=== PATIENT | male | born 1945 | race Caucasian/White ===

== ENCOUNTER 2017-03-26 14:12 | Inpatient (IN) | payer MEDICARE, OTHER ==
[~2017-03-26] VITALS: Ht 186.7 cm; Wt 84.9 kg
[2017-03-26] MEDS ORDERED: SODIUM CHLORIDE 0.9% 1,000 ML IV ONE (15:01)
[2017-03-26] MEDS ORDERED: ASPI-621 PO (15:17)
[2017-03-26] MEDS ORDERED: VITA400C9 PO (15:17)
[2017-03-26] MEDS ORDERED: SIMV10TA3 PO (15:17)
[2017-03-26] MEDS ORDERED: MILK500C PO (15:17)
[2017-03-26] MEDS ORDERED: OMEP-110 PO (15:17)
[2017-03-26] MEDS ORDERED: CETI10TA24 PO (15:17)
[2017-03-26] MEDS ORDERED: LISI5TAB7 PO (15:17)
[2017-03-26 15:19] LABS: HEMATOCRIT 42.6 % (39.2-51.8); HEMOGLOBIN 14.5 g/dL (13.7-18.0); WHITE BLOOD COUNT 22.2 x10^3/uL (3.4-10)
[2017-03-26] MEDS ORDERED: SODIUM CHLORIDE FLUSH 10ML SYR IVF ONE (15:30)
[2017-03-26] MEDS ORDERED: SODIUM CHLORIDE 0.9% 1,000ML IVBOLUS ONE (15:30)
[2017-03-26 15:34] LABS: ASPARTATE AMINO TRANSFERASE 48 U/L (15-37); BLOOD UREA NITROGEN 23 mg/dL (7-18)
[2017-03-26] MEDS ORDERED: SODIUM CHLORIDE 0.9%, 500ML IVBOLUS ONE (16:30)
[2017-03-26] MEDS ORDERED: CEFTRIAXONE PMX 1GM/50ML 50 ML IV ONE (20:00)
[2017-03-26] MEDS ORDERED: ACETAMINOPHEN 500 MG TABLET PO ONE (20:00)
[2017-03-26] MEDS ORDERED: CEFTRIAXONE PMX 1GM/50ML 50 ML ONE (20:47)
[2017-03-26] MEDS ORDERED: ACETAMINOPHEN 500 MG TABLET ONE (20:47)
[2017-03-26 22:30] VITALS: BP 112/67
[2017-03-27] MEDS ORDERED: SODIUM CHLORIDE 0.9% 1,000 ML IV SCH (00:36)
[2017-03-27] MEDS ORDERED: ENALAPRILAT 1.25 MG/ML, 2ML IVPush PRN (01:00)
[2017-03-27] MEDS ORDERED: DIPHENHYDRAMINE 25 MG CAPSULE PO PRN (01:00)
[2017-03-27] MEDS ORDERED: ONDANSETRON ODT 4 MG PO PRN (01:00)
[2017-03-27] MEDS ORDERED: DOCUSATE 100 MG CAPSULE PO PRN (01:00)
[2017-03-27 02:31] VITALS: BP 112/66
[2017-03-27] MEDS: ACETAMINOPHEN 325 MG TABLET PO PRN ×5 (04:37→23:08)
[2017-03-27] MEDS: OMEPRAZOLE 20 MG CAPSULE.DR PO SCH ×3 (05:00→19:29)
[2017-03-27 07:53] VITALS: BP 113/68
[2017-03-27] MEDS: CEFTRIAXONE PMX 1GM/50ML 50 ML IV SCH ×2 (09:44→19:28)
[2017-03-27] MEDS: SODIUM CHLORIDE 0.9% 1,000 ML IV SCH ×2 (09:44→22:22)
[2017-03-27] MEDS: ENOXAPARIN 40 MG/0.4 ML SQ SCH (09:52)
[2017-03-27 13:08] VITALS: BP 150/87
[2017-03-27 14:01] LABS: RAPID INFLUENZA A Negative (Negative); RAPID INFLUENZA B Negative (Negative)
[2017-03-27 16:28] LABS: HEMATOCRIT 38.5 % (39.2-51.8); HEMOGLOBIN 13.1 g/dL (13.7-18.0); WHITE BLOOD COUNT 20.8 x10^3/uL (3.4-10)
[2017-03-27 16:39] LABS: BLOOD UREA NITROGEN 15 mg/dL (7-18)
[2017-03-27 19:11] VITALS: BP 114/68
[2017-03-27] MEDS: ASPIRIN 81 MG TABLET EC PO SCH (19:27)
[2017-03-27] MEDS: LISINOPRIL 5 MG TABLET PO SCH (19:28)
[2017-03-27] MEDS: CETIRIZINE 10 MG TABLET PO SCH (19:28)
[2017-03-27] MEDS: VITAMIN E 400 UNITS CAPSULE PO SCH (19:28)
[2017-03-27] MEDS: SIMVASTATIN 10 MG TABLET PO SCH (19:28)
[2017-03-27] MEDS ORDERED: MILK THISTLE 500 MG PO SCH (21:00)
[2017-03-27] MEDS ORDERED: OMNIPAQUE 350 MG/ML, 100ML BOTTLE ONE (22:26)
[2017-03-28 01:45] VITALS: BP 112/69
[2017-03-28] MEDS: ACETAMINOPHEN 325 MG TABLET PO PRN ×2 (04:46→10:06)
[2017-03-28 05:19] LABS: HEMATOCRIT 37.5 % (39.2-51.8); HEMOGLOBIN 12.8 g/dL (13.7-18.0); WHITE BLOOD COUNT 24.6 x10^3/uL (3.4-10)
[2017-03-28 05:28] LABS: BLOOD UREA NITROGEN 14 mg/dL (7-18)
[2017-03-28 06:01] LABS: DIFF TOTAL CELLS COUNTED 100 CELL DIFF
[2017-03-28 06:03] LABS: POLYCHROMASIA 1+; VERIFY COUNTS? YES
[2017-03-28 07:45] VITALS: BP 101/55
[2017-03-28] MEDS: SODIUM CHLORIDE 0.9% 1,000 ML IV SCH ×2 (08:02→19:56)
[2017-03-28] MEDS: CEFTRIAXONE PMX 1GM/50ML 50 ML IV SCH (08:02)
[2017-03-28] MEDS: ENOXAPARIN 40 MG/0.4 ML SQ SCH (08:03)
[2017-03-28] MEDS: OMEPRAZOLE 20 MG CAPSULE.DR PO SCH ×2 (08:03→19:57)
[2017-03-28 13:27] VITALS: BP 137/79
[2017-03-28] MEDS ORDERED: HYDROcodone/APAP 5/325 TABLET PO PRN (15:00)
[2017-03-28 18:49] VITALS: BP 153/85
[2017-03-28] MEDS: ASPIRIN 81 MG TABLET EC PO SCH (19:57)
[2017-03-28] MEDS: CETIRIZINE 10 MG TABLET PO SCH (19:57)
[2017-03-28] MEDS: VITAMIN E 400 UNITS CAPSULE PO SCH (19:57)
[2017-03-28] MEDS: POLYETHYLENE GLYCOL 17 GM PACKET NG SCH (19:57)
[2017-03-28] MEDS: SIMVASTATIN 10 MG TABLET PO SCH (19:57)
[2017-03-28] MEDS: LISINOPRIL 5 MG TABLET PO SCH (19:58)
[2017-03-29 01:42] VITALS: BP 138/72
[2017-03-29] MEDS: SODIUM CHLORIDE 0.9% 1,000 ML IV SCH ×3 (05:11→23:36)
[2017-03-29 05:13] LABS: HEMATOCRIT 36.6 % (39.2-51.8); HEMOGLOBIN 12.4 g/dL (13.7-18.0); WHITE BLOOD COUNT 24.3 x10^3/uL (3.4-10)
[2017-03-29 05:22] LABS: ASPARTATE AMINO TRANSFERASE 23 U/L (15-37); BLOOD UREA NITROGEN 17 mg/dL (7-18)
[2017-03-29 06:10] LABS: DIFF TOTAL CELLS COUNTED 100 CELL DIFF
[2017-03-29 06:13] LABS: ANISOCYTOSIS 1+; POLYCHROMASIA 1+; VERIFY COUNTS? YES
[2017-03-29 07:15] VITALS: BP 114/65
[2017-03-29] MEDS: ENOXAPARIN 40 MG/0.4 ML SQ SCH (08:03)
[2017-03-29] MEDS: OMEPRAZOLE 20 MG CAPSULE.DR PO SCH ×2 (08:03→20:27)
[2017-03-29 13:03] VITALS: BP 128/70
[2017-03-29 17:13] LABS: HIV 1&2 ANTIBODY SCREEN Nonreactive (Nonreactive); HIV-1 p24 ANTIGEN Nonreactive (Nonreactive)
[2017-03-29 19:31] VITALS: BP 108/65
[2017-03-29] MEDS: LISINOPRIL 5 MG TABLET PO SCH (20:27)
[2017-03-29] MEDS: VITAMIN E 400 UNITS CAPSULE PO SCH (20:27)
[2017-03-29] MEDS: ASPIRIN 81 MG TABLET EC PO SCH (20:27)
[2017-03-29] MEDS: POLYETHYLENE GLYCOL 17 GM PACKET NG SCH (20:27)
[2017-03-29] MEDS: CETIRIZINE 10 MG TABLET PO SCH (20:28)
[2017-03-29] MEDS: SIMVASTATIN 10 MG TABLET PO SCH (20:28)
[2017-03-30 01:35] VITALS: BP 108/60
[2017-03-30] MEDS ORDERED: DOCUSATE 100 MG CAPSULE PO PRN (03:30)
[2017-03-30] MEDS ORDERED: DIPHENHYDRAMINE 25 MG CAPSULE PO PRN (03:30)
[2017-03-30] MEDS ORDERED: ENALAPRILAT 1.25 MG/ML, 2ML IVPush PRN (03:30)
[2017-03-30] MEDS ORDERED: ONDANSETRON ODT 4 MG PO PRN (03:30)
[2017-03-30 05:10] LABS: HEMATOCRIT 38.2 % (39.2-51.8); HEMOGLOBIN 13.1 g/dL (13.7-18.0)
[2017-03-30 05:25] LABS: BLOOD UREA NITROGEN 14 mg/dL (7-18)
[2017-03-30 05:53] LABS: DIFF TOTAL CELLS COUNTED 100 CELL DIFF
[2017-03-30 05:55] LABS: ANISOCYTOSIS 1+; POLYCHROMASIA 1+; VERIFY COUNTS? YES
[2017-03-30 07:52] VITALS: BP 102/62
[2017-03-30] MEDS: ENOXAPARIN 40 MG/0.4 ML SQ SCH (09:03)
[2017-03-30] MEDS: OMEPRAZOLE 20 MG CAPSULE.DR PO SCH ×2 (09:03→20:58)
[2017-03-30] MEDS: SODIUM CHLORIDE 0.9% 1,000 ML IV SCH ×2 (09:15→19:48)
[2017-03-30] MEDS: ACETAMINOPHEN 325 MG TABLET PO PRN ×3 (12:42→20:58)
[2017-03-30 13:28] VITALS: BP 98/61
[2017-03-30 20:10] VITALS: BP 100/63
[2017-03-30] MEDS: POLYETHYLENE GLYCOL 17 GM PACKET NG SCH (20:57)
[2017-03-30] MEDS: ASPIRIN 81 MG TABLET EC PO SCH (20:57)
[2017-03-30] MEDS: LISINOPRIL 5 MG TABLET PO SCH (20:58)
[2017-03-30] MEDS: CETIRIZINE 10 MG TABLET PO SCH (20:58)
[2017-03-30] MEDS: VITAMIN E 400 UNITS CAPSULE PO SCH (20:58)
[2017-03-31] MEDS: ACETAMINOPHEN 325 MG TABLET PO PRN ×5 (01:01→19:00)
[2017-03-31 01:40] VITALS: BP 120/63
[2017-03-31 05:22] LABS: HEMATOCRIT 35.7 % (39.2-51.8); WHITE BLOOD COUNT 33.3 x10^3/uL (3.4-10)
[2017-03-31] MEDS: SODIUM CHLORIDE 0.9% 1,000 ML IV SCH ×2 (05:27→16:25)
[2017-03-31 05:30] LABS: BLOOD UREA NITROGEN 14 mg/dL (7-18)
[2017-03-31 05:49] LABS: DIFF TOTAL CELLS COUNTED 100 CELL DIFF
[2017-03-31 05:50] LABS: VERIFY COUNTS? YES
[2017-03-31 05:53] LABS: ANISOCYTOSIS 1+; POLYCHROMASIA 1+
[2017-03-31 07:45] VITALS: BP 98/58
[2017-03-31] MEDS: ENOXAPARIN 40 MG/0.4 ML SQ SCH (08:52)
[2017-03-31] MEDS: OMEPRAZOLE 20 MG CAPSULE.DR PO SCH ×2 (08:52→19:59)
[2017-03-31] MEDS: CEFTRIAXONE PMX 2GM/50ML 50 ML IV SCH (12:28)
[2017-03-31] MEDS: DOXYCYCLINE 100MG TABLET PO SCH ×2 (12:58→20:00)
[2017-03-31] MEDS ORDERED: POTASSIUM CHLORIDE 20 MEQ TAB.ER.PRT PO ONE (14:30)
[2017-03-31 15:10] VITALS: BP 121/71
[2017-03-31 19:48] VITALS: BP 110/65
[2017-03-31] MEDS: ASPIRIN 81 MG TABLET EC PO SCH (19:59)
[2017-03-31] MEDS: POLYETHYLENE GLYCOL 17 GM PACKET NG SCH (19:59)
[2017-03-31] MEDS: LISINOPRIL 5 MG TABLET PO SCH (19:59)
[2017-03-31] MEDS: VITAMIN E 400 UNITS CAPSULE PO SCH (20:00)
[2017-03-31] MEDS: CETIRIZINE 10 MG TABLET PO SCH (20:00)
[2017-04-01] MEDS: ACETAMINOPHEN 325 MG TABLET PO PRN ×5 (00:58→23:19)
[2017-04-01] MEDS: SODIUM CHLORIDE 0.9% 1,000 ML IV SCH ×2 (00:59→11:46)
[2017-04-01 03:59] VITALS: BP 96/58
[2017-04-01 05:35] LABS: HEMATOCRIT 36.8 % (39.2-51.8); HEMOGLOBIN 12.4 g/dL (13.7-18.0); WHITE BLOOD COUNT 31.9 x10^3/uL (3.4-10)
[2017-04-01 06:05] LABS: BLOOD UREA NITROGEN 12 mg/dL (7-18)
[2017-04-01 06:15] LABS: DIFF TOTAL CELLS COUNTED 100 CELL DIFF
[2017-04-01 06:19] LABS: ANISOCYTOSIS 1+; POLYCHROMASIA 1+; VERIFY COUNTS? YES
[2017-04-01] MEDS: ENOXAPARIN 40 MG/0.4 ML SQ SCH (07:52)
[2017-04-01] MEDS: DOXYCYCLINE 100MG TABLET PO SCH ×2 (07:52→21:27)
[2017-04-01] MEDS: OMEPRAZOLE 20 MG CAPSULE.DR PO SCH ×2 (07:52→21:30)
[2017-04-01 07:55] VITALS: BP 102/65
[2017-04-01] MEDS: OXYcodone IR 5MG TABLET PO PRN ×4 (10:56→23:25)
[2017-04-01] MEDS: CEFTRIAXONE PMX 2GM/50ML 50 ML IV SCH (13:39)
[2017-04-01 14:10] VITALS: BP 106/59
[2017-04-01 20:17] VITALS: BP 112/71
[2017-04-01] MEDS: POLYETHYLENE GLYCOL 17 GM PACKET NG SCH (21:00)
[2017-04-01] MEDS: CETIRIZINE 10 MG TABLET PO SCH (21:27)
[2017-04-01] MEDS: VITAMIN E 400 UNITS CAPSULE PO SCH (21:27)
[2017-04-01] MEDS: ASPIRIN 81 MG TABLET EC PO SCH (21:30)
[2017-04-01] MEDS: LISINOPRIL 5 MG TABLET PO SCH (21:30)
[2017-04-02 03:50] VITALS: BP 109/70
[2017-04-02] MEDS: SODIUM CHLORIDE 0.9% 1,000 ML IV SCH (05:15)
[2017-04-02 05:48] LABS: HEMOGLOBIN 12.4 g/dL (13.7-18.0); WHITE BLOOD COUNT 30.1 x10^3/uL (3.4-10)
[2017-04-02] MEDS: OXYcodone IR 5MG TABLET PO PRN ×3 (05:49→18:29)
[2017-04-02] MEDS: ACETAMINOPHEN 325 MG TABLET PO PRN ×3 (05:49→18:29)
[2017-04-02 06:07] LABS: DIFF TOTAL CELLS COUNTED 100 CELL DIFF
[2017-04-02 06:09] LABS: ANISOCYTOSIS 1+; POLYCHROMASIA 1+; VERIFY COUNTS? YES
[2017-04-02 07:39] VITALS: BP 109/68
[2017-04-02] MEDS: OMEPRAZOLE 20 MG CAPSULE.DR PO SCH ×2 (09:00→21:00)
[2017-04-02] MEDS: DOXYCYCLINE 100MG TABLET PO SCH ×2 (09:04→21:07)
[2017-04-02] MEDS: ENOXAPARIN 40 MG/0.4 ML SQ SCH (09:05)
[2017-04-02] MEDS: CEFTRIAXONE PMX 2GM/50ML 50 ML IV SCH (13:15)
[2017-04-02 14:00] VITALS: BP 109/54
[2017-04-02] MEDS ORDERED: GADOBUTROL 10 MMOL/10 ML PFS ONE (14:46)
[2017-04-02 16:07] LABS: BARTONELLA HENSELAE IGG Negative titer (Neg:<1:320); BARTONELLA HENSELAE IGM Negative titer (Neg:<1:100); BARTONELLA QUINTANA IGM Negative titer (Neg:<1:100)
[2017-04-02 19:44] VITALS: BP 123/68
[2017-04-02] MEDS: POLYETHYLENE GLYCOL 17 GM PACKET NG SCH (21:00)
[2017-04-02] MEDS: CETIRIZINE 10 MG TABLET PO SCH (21:06)
[2017-04-02] MEDS: LISINOPRIL 5 MG TABLET PO SCH (21:07)
[2017-04-02] MEDS: VITAMIN E 400 UNITS CAPSULE PO SCH (21:07)
[2017-04-02] MEDS: ASPIRIN 81 MG TABLET EC PO SCH (21:07)
[2017-04-03] MEDS: OXYcodone IR 5MG TABLET PO PRN ×4 (00:43→18:39)
[2017-04-03] MEDS: ACETAMINOPHEN 325 MG TABLET PO PRN ×4 (00:43→18:39)
[2017-04-03] MEDS ORDERED: SODIUM CHLORIDE 0.9% 1,000 ML IV SCH (00:51)
[2017-04-03 01:21] VITALS: BP 108/64
[2017-04-03 06:08] LABS: BLOOD UREA NITROGEN 13 mg/dL (7-18)
[2017-04-03 06:13] LABS: HEMATOCRIT 34.2 % (39.2-51.8); HEMOGLOBIN 11.7 g/dL (13.7-18.0); WHITE BLOOD COUNT 22.7 x10^3/uL (3.4-10)
[2017-04-03 06:18] LABS: ASPARTATE AMINO TRANSFERASE 83 U/L (15-37)
[2017-04-03 06:31] LABS: DIFF TOTAL CELLS COUNTED 100 CELL DIFF
[2017-04-03 06:32] LABS: VERIFY COUNTS? YES
[2017-04-03 06:33] LABS: ANISOCYTOSIS 1+; POLYCHROMASIA 1+
[2017-04-03 06:38] VITALS: BP 124/69
[2017-04-03 07:49] VITALS: BP 109/66
[2017-04-03] MEDS: ENOXAPARIN 40 MG/0.4 ML SQ SCH (08:17)
[2017-04-03] MEDS: OMEPRAZOLE 20 MG CAPSULE.DR PO SCH ×2 (08:18→21:00)
[2017-04-03] MEDS: DOXYCYCLINE 100MG TABLET PO SCH ×2 (08:18→21:00)
[2017-04-03] MEDS: CEFTRIAXONE PMX 2GM/50ML 50 ML IV SCH (12:42)
[2017-04-03 13:06] LABS: BRUCELLA IGG Negative (Negative); BRUCELLA IGM Negative (Negative)
[2017-04-03 13:33] VITALS: BP 112/72
[2017-04-03 14:45] LABS: ANA SCREEN NEGATIVE (Negative)
[2017-04-03 19:28] VITALS: BP 116/70
[2017-04-03] MEDS: POLYETHYLENE GLYCOL 17 GM PACKET NG SCH (21:00)
[2017-04-03] MEDS: VITAMIN E 400 UNITS CAPSULE PO SCH (21:00)
[2017-04-03] MEDS: ASPIRIN 81 MG TABLET EC PO SCH (21:00)
[2017-04-03] MEDS: LISINOPRIL 5 MG TABLET PO SCH (21:00)
[2017-04-03] MEDS: CETIRIZINE 10 MG TABLET PO SCH (21:00)
[2017-04-04] MEDS: OXYcodone IR 5MG TABLET PO PRN ×4 (01:02→20:40)
[2017-04-04] MEDS: ACETAMINOPHEN 325 MG TABLET PO PRN ×4 (01:05→20:40)
[2017-04-04 02:33] VITALS: BP 117/69
[2017-04-04 05:40] LABS: HEMATOCRIT 33.7 % (39.2-51.8); HEMOGLOBIN 11.3 g/dL (13.7-18.0); WHITE BLOOD COUNT 20.2 x10^3/uL (3.4-10)
[2017-04-04 05:48] LABS: BLOOD UREA NITROGEN 13 mg/dL (7-18)
[2017-04-04 05:59] LABS: ASPARTATE AMINO TRANSFERASE 86 U/L (15-37); LACTATE DEHYDROGENASE 145 U/L (87-241)
[2017-04-04 06:04] LABS: DIFF TOTAL CELLS COUNTED 100 CELL DIFF
[2017-04-04 06:06] LABS: ANISOCYTOSIS 1+; POLYCHROMASIA 1+; VERIFY COUNTS? YES
[2017-04-04 07:37] VITALS: BP 113/72
[2017-04-04] MEDS: DOXYCYCLINE 100MG TABLET PO SCH ×2 (08:06→20:40)
[2017-04-04] MEDS: OMEPRAZOLE 20 MG CAPSULE.DR PO SCH ×2 (08:06→20:39)
[2017-04-04] MEDS: ENOXAPARIN 40 MG/0.4 ML SQ SCH (08:07)
[2017-04-04] MEDS ORDERED: morphine SULFATE 10 MG/ML, 1ML IVPush ONE (13:00)
[2017-04-04 14:23] VITALS: BP 110/68
[2017-04-04] MEDS ORDERED: GADOBUTROL 10 MMOL/10 ML PFS ONE (15:23)
[2017-04-04] MEDS: CEFTRIAXONE PMX 2GM/50ML 50 ML IV SCH (16:32)
[2017-04-04] MEDS: POLYETHYLENE GLYCOL 17 GM PACKET PO SCH (16:32)
[2017-04-04 17:06] LABS: RESULT Not Detected (.); SPECIMEN SOURCE Whole Blood (.)
[2017-04-04] MEDS: ASPIRIN 81 MG TABLET EC PO SCH (20:39)
[2017-04-04] MEDS: CETIRIZINE 10 MG TABLET PO SCH (20:40)
[2017-04-04] MEDS: LISINOPRIL 5 MG TABLET PO SCH (20:40)
[2017-04-04] MEDS: VITAMIN E 400 UNITS CAPSULE PO SCH (20:40)
[2017-04-04 20:48] VITALS: BP 134/71
[2017-04-05 03:49] VITALS: BP 112/63
[2017-04-05] MEDS: ACETAMINOPHEN 325 MG TABLET PO PRN ×3 (03:53→16:23)
[2017-04-05] MEDS: OXYcodone IR 5MG TABLET PO PRN ×3 (03:53→10:05)
[2017-04-05 07:35] VITALS: BP 112/69
[2017-04-05 08:03] LABS: HEMATOCRIT 34.8 % (39.2-51.8); HEMOGLOBIN 11.8 g/dL (13.7-18.0); WHITE BLOOD COUNT 19.6 x10^3/uL (3.4-10)
[2017-04-05 08:08] LABS: BLOOD UREA NITROGEN 11 mg/dL (7-18)
[2017-04-05 08:12] LABS: ASPARTATE AMINO TRANSFERASE 73 U/L (15-37)
[2017-04-05 09:03] LABS: DIFF TOTAL CELLS COUNTED 100 CELL DIFF
[2017-04-05 09:04] LABS: VERIFY COUNTS? YES
[2017-04-05] MEDS: POLYETHYLENE GLYCOL 17 GM PACKET PO SCH (10:06)
[2017-04-05] MEDS: DOXYCYCLINE 100MG TABLET PO SCH ×2 (10:06→20:40)
[2017-04-05] MEDS: OMEPRAZOLE 20 MG CAPSULE.DR PO SCH ×2 (10:07→20:41)
[2017-04-05] MEDS: ENOXAPARIN 40 MG/0.4 ML SQ SCH (10:07)
[2017-04-05 13:28] VITALS: BP 110/65
[2017-04-05] MEDS ORDERED: OXYcodone IR 5MG TABLET PO SCH (16:00)
[2017-04-05] MEDS: OXYcodone IR 5MG TABLET PO SCH ×2 (16:23→20:40)
[2017-04-05] MEDS: CEFTRIAXONE PMX 2GM/50ML 50 ML IV SCH (16:24)
[2017-04-05] MEDS: GABAPENTIN 300 MG CAPSULE PO SCH ×2 (16:25→20:41)
[2017-04-05 20:02] VITALS: BP 118/67
[2017-04-05] MEDS: VITAMIN E 400 UNITS CAPSULE PO SCH (20:40)
[2017-04-05] MEDS: LISINOPRIL 5 MG TABLET PO SCH (20:41)
[2017-04-05] MEDS: ASPIRIN 81 MG TABLET EC PO SCH (20:41)
[2017-04-05] MEDS: CETIRIZINE 10 MG TABLET PO SCH (20:42)
[2017-04-06 01:57] VITALS: BP 101/66
[2017-04-06] MEDS: ACETAMINOPHEN 325 MG TABLET PO PRN ×4 (02:55→21:23)
[2017-04-06 04:56] LABS: HEMATOCRIT 33.6 % (39.2-51.8); HEMOGLOBIN 11.5 g/dL (13.7-18.0); WHITE BLOOD COUNT 18.5 x10^3/uL (3.4-10)
[2017-04-06 05:18] LABS: ASPARTATE AMINO TRANSFERASE 77 U/L (15-37); BLOOD UREA NITROGEN 14 mg/dL (7-18)
[2017-04-06] MEDS: OXYcodone IR 5MG TABLET PO SCH ×4 (05:53→21:21)
[2017-04-06 06:06] LABS: DIFF TOTAL CELLS COUNTED 100 CELL DIFF
[2017-04-06 06:08] LABS: POLYCHROMASIA 1+; VERIFY COUNTS? YES
[2017-04-06 07:23] VITALS: BP 102/57
[2017-04-06] MEDS: GABAPENTIN 300 MG CAPSULE PO SCH ×3 (08:53→20:54)
[2017-04-06] MEDS: OMEPRAZOLE 20 MG CAPSULE.DR PO SCH ×2 (08:53→20:54)
[2017-04-06] MEDS: POLYETHYLENE GLYCOL 17 GM PACKET PO SCH (08:53)
[2017-04-06] MEDS: ENOXAPARIN 40 MG/0.4 ML SQ SCH (08:54)
[2017-04-06] MEDS: DOXYCYCLINE 100MG TABLET PO SCH ×2 (08:54→20:55)
[2017-04-06 13:22] VITALS: BP 90/55
[2017-04-06] MEDS: CEFTRIAXONE PMX 2GM/50ML 50 ML IV SCH (14:49)
[2017-04-06] MEDS ORDERED: ENALAPRILAT 1.25 MG/ML, 2ML IVPush PRN (19:30)
[2017-04-06] MEDS ORDERED: DIPHENHYDRAMINE 25 MG CAPSULE PO PRN (19:30)
[2017-04-06] MEDS ORDERED: DOCUSATE 100 MG CAPSULE PO PRN (19:30)
[2017-04-06 20:17] VITALS: BP 96/62
[2017-04-06] MEDS: ASPIRIN 81 MG TABLET EC PO SCH (20:54)
[2017-04-06] MEDS: LISINOPRIL 5 MG TABLET PO SCH (20:55)
[2017-04-06] MEDS: CETIRIZINE 10 MG TABLET PO SCH (20:55)
[2017-04-06] MEDS: VITAMIN E 400 UNITS CAPSULE PO SCH (20:55)
[2017-04-07 01:37] VITALS: BP 114/67
[2017-04-07] MEDS: OXYcodone IR 5MG TABLET PO SCH ×4 (04:53→20:55)
[2017-04-07] MEDS: ACETAMINOPHEN 325 MG TABLET PO PRN ×2 (04:53→20:55)
[2017-04-07 05:51] LABS: HEMATOCRIT 33.8 % (39.2-51.8); HEMOGLOBIN 11.4 g/dL (13.7-18.0); WHITE BLOOD COUNT 16.9 x10^3/uL (3.4-10)
[2017-04-07 06:03] LABS: BLOOD UREA NITROGEN 13 mg/dL (7-18)
[2017-04-07 06:13] LABS: ASPARTATE AMINO TRANSFERASE 79 U/L (15-37)
[2017-04-07 08:18] VITALS: BP 114/64
[2017-04-07] MEDS: POLYETHYLENE GLYCOL 17 GM PACKET PO SCH (09:00)
[2017-04-07] MEDS: ENOXAPARIN 40 MG/0.4 ML SQ SCH (09:37)
[2017-04-07] MEDS ORDERED: FLUMAZENIL 0.1 MG/1 ML, 5ML ONE (10:01)
[2017-04-07] MEDS ORDERED: NALOXONE 1 MG/ML, 2ML ONE (10:01)
[2017-04-07] MEDS ORDERED: FENTANYL PF 100 MCG/2ML ONE (10:01)
[2017-04-07] MEDS ORDERED: MIDAZOLAM 1 MG/ML, 5ML ONE (10:01)
[2017-04-07] MEDS ORDERED: LIDOCAINE 1%, 20ML ONE (10:16)
[2017-04-07] MEDS: DOXYCYCLINE 100MG TABLET PO SCH ×2 (11:45→20:53)
[2017-04-07] MEDS: GABAPENTIN 300 MG CAPSULE PO SCH ×3 (11:45→20:53)
[2017-04-07] MEDS: OMEPRAZOLE 20 MG CAPSULE.DR PO SCH ×2 (11:45→20:54)
[2017-04-07 13:06] LABS: UR ALBUMIN 18.4 % (.); UR ALPHA-2-GLOBULIN 21.4 % (.); UR BETA GLOBULIN 30.9 % (.); UR GAMMA GLOBULIN 22.4 % (.); UR M-SPIKE % Not Observed % (Not Observed)
[2017-04-07 14:20] VITALS: BP 110/67
[2017-04-07] MEDS: CEFTRIAXONE PMX 2GM/50ML 50 ML IV SCH (15:59)
[2017-04-07 20:07] VITALS: BP 129/72
[2017-04-07] MEDS: ASPIRIN 81 MG TABLET EC PO SCH (20:53)
[2017-04-07] MEDS: CETIRIZINE 10 MG TABLET PO SCH (20:54)
[2017-04-07] MEDS: VITAMIN E 400 UNITS CAPSULE PO SCH (20:54)
[2017-04-07] MEDS: LISINOPRIL 5 MG TABLET PO SCH (20:54)
[2017-04-08 02:20] VITALS: BP 96/60
[2017-04-08 06:10] LABS: HEMATOCRIT 33.4 % (39.2-51.8); HEMOGLOBIN 11.3 g/dL (13.7-18.0); WHITE BLOOD COUNT 16.8 x10^3/uL (3.4-10)
[2017-04-08] MEDS: OXYcodone IR 5MG TABLET PO SCH ×4 (06:12→21:00)
[2017-04-08] MEDS: ACETAMINOPHEN 325 MG TABLET PO PRN ×4 (06:12→21:01)
[2017-04-08 06:18] LABS: BLOOD UREA NITROGEN 13 mg/dL (7-18)
[2017-04-08 06:21] LABS: ASPARTATE AMINO TRANSFERASE 64 U/L (15-37)
[2017-04-08 07:43] VITALS: BP 98/62
[2017-04-08] MEDS: OMEPRAZOLE 20 MG CAPSULE.DR PO SCH ×2 (08:46→21:01)
[2017-04-08] MEDS: ENOXAPARIN 40 MG/0.4 ML SQ SCH (08:47)
[2017-04-08] MEDS: POLYETHYLENE GLYCOL 17 GM PACKET PO SCH (08:47)
[2017-04-08] MEDS: GABAPENTIN 300 MG CAPSULE PO SCH ×3 (08:47→21:00)
[2017-04-08] MEDS: DOXYCYCLINE 100MG TABLET PO SCH ×2 (08:47→21:01)
[2017-04-08 09:07] LABS: A/G RATIO 0.7 (0.7-1.7); ALBUMIN 1.8 g/dL (2.9-4.4); ALPHA-1-GLOBULIN 0.4 g/dL (0.0-0.4); BETA GLOBULIN 0.6 g/dL (0.7-1.3); GAMMA GLOBULIN 0.6 g/dL (0.4-1.8); PROTEIN TOTAL 4.4 g/dL (6.0-8.5)
[2017-04-08 14:00] VITALS: BP 104/62
[2017-04-08] MEDS: CEFTRIAXONE PMX 2GM/50ML 50 ML IV SCH (15:08)
[2017-04-08 17:07] LABS: COCCIDIOIDES AB (CF) <1:2 (<1:2); COCCIDIOIDES IGG 0.5 IV (<=0.9); COCCIDIOIDES IGM 0.2 IV (<=0.9)
[2017-04-08 20:00] VITALS: BP 115/68
[2017-04-08] MEDS: VITAMIN E 400 UNITS CAPSULE PO SCH (21:00)
[2017-04-08] MEDS: CETIRIZINE 10 MG TABLET PO SCH (21:00)
[2017-04-08] MEDS: ASPIRIN 81 MG TABLET EC PO SCH (21:01)
[2017-04-08] MEDS: LISINOPRIL 5 MG TABLET PO SCH (21:01)
[2017-04-09 01:13] VITALS: BP 101/55
[2017-04-09] MEDS: OXYcodone IR 5MG TABLET PO SCH ×4 (05:16→20:48)
[2017-04-09] MEDS: ACETAMINOPHEN 325 MG TABLET PO PRN ×4 (05:16→20:48)
[2017-04-09 06:18] LABS: HEMATOCRIT 31.4 % (39.2-51.8); HEMOGLOBIN 10.7 g/dL (13.7-18.0)
[2017-04-09 07:44] VITALS: BP 96/59
[2017-04-09] MEDS: POLYETHYLENE GLYCOL 17 GM PACKET PO SCH (09:47)
[2017-04-09] MEDS: GABAPENTIN 300 MG CAPSULE PO SCH ×3 (09:47→20:48)
[2017-04-09] MEDS: OMEPRAZOLE 20 MG CAPSULE.DR PO SCH ×2 (09:47→20:48)
[2017-04-09] MEDS: DOXYCYCLINE 100MG TABLET PO SCH ×2 (09:47→20:48)
[2017-04-09] MEDS: ENOXAPARIN 40 MG/0.4 ML SQ SCH (09:48)
[2017-04-09 14:23] VITALS: BP 103/62
[2017-04-09] MEDS: CEFTRIAXONE PMX 2GM/50ML 50 ML IV SCH (15:23)
[2017-04-09 20:15] VITALS: BP 103/57
[2017-04-09] MEDS: VITAMIN E 400 UNITS CAPSULE PO SCH (20:48)
[2017-04-09] MEDS: LISINOPRIL 5 MG TABLET PO SCH (20:48)
[2017-04-09] MEDS: CETIRIZINE 10 MG TABLET PO SCH (20:48)
[2017-04-09] MEDS: ASPIRIN 81 MG TABLET EC PO SCH (20:48)
[2017-04-10] MEDS: ACETAMINOPHEN 325 MG TABLET PO PRN ×5 (01:05→20:59)
[2017-04-10 02:58] VITALS: BP 105/62
[2017-04-10] MEDS: OXYcodone IR 5MG TABLET PO SCH ×4 (06:02→20:59)
[2017-04-10 08:31] VITALS: BP 106/59
[2017-04-10] MEDS: DOXYCYCLINE 100MG TABLET PO SCH ×2 (08:44→20:59)
[2017-04-10] MEDS: OMEPRAZOLE 20 MG CAPSULE.DR PO SCH ×2 (08:45→20:59)
[2017-04-10] MEDS: POLYETHYLENE GLYCOL 17 GM PACKET PO SCH (08:45)
[2017-04-10] MEDS: ENOXAPARIN 40 MG/0.4 ML SQ SCH (08:45)
[2017-04-10] MEDS: GABAPENTIN 300 MG CAPSULE PO SCH ×3 (08:45→20:59)
[2017-04-10 13:27] VITALS: BP 103/63
[2017-04-10] MEDS: CEFTRIAXONE PMX 2GM/50ML 50 ML IV SCH (15:51)
[2017-04-10 20:37] VITALS: BP 112/63
[2017-04-10] MEDS: ASPIRIN 81 MG TABLET EC PO SCH (20:59)
[2017-04-10] MEDS: LISINOPRIL 5 MG TABLET PO SCH (20:59)
[2017-04-10] MEDS: VITAMIN E 400 UNITS CAPSULE PO SCH (20:59)
[2017-04-10] MEDS: CETIRIZINE 10 MG TABLET PO SCH (21:00)
[2017-04-10 23:06] LABS: ABSOLUTE CD 4 HELPER 1175 /uL (359-1519); HEMATOCRIT 32.7 % (37.5-51.0); HEMOGLOBIN 10.7 g/dL (12.6-17.7); IMMATURE GRANULOCYTES 2 % (.); MCHC 32.7 g/dL (31.5-35.7); MCV 95 fL (79-97); MONOCYTES 10 % (.); NEUTROPHILS 74 % (.); NEUTROPHILS (ABSOLUTE) 12.5 x10E3/uL (1.4-7.0); PLATELETS 556 x10E3/uL (150-379); RBC 3.45 x10E6/uL (4.14-5.80); RDW 14.6 % (12.3-15.4); WBC 16.9 x10E3/uL (3.4-10.8)
[2017-04-11 03:20] VITALS: BP 98/56
[2017-04-11] MEDS: OXYcodone IR 5MG TABLET PO SCH ×4 (06:04→21:43)
[2017-04-11] MEDS: ACETAMINOPHEN 325 MG TABLET PO PRN ×4 (06:04→21:43)
[2017-04-11 07:49] VITALS: BP 93/54
[2017-04-11] MEDS: ENOXAPARIN 40 MG/0.4 ML SQ SCH (09:54)
[2017-04-11] MEDS: POLYETHYLENE GLYCOL 17 GM PACKET PO SCH (09:54)
[2017-04-11] MEDS: GABAPENTIN 300 MG CAPSULE PO SCH ×3 (09:55→21:44)
[2017-04-11] MEDS: OMEPRAZOLE 20 MG CAPSULE.DR PO SCH ×2 (09:55→21:44)
[2017-04-11] MEDS: DOXYCYCLINE 100MG TABLET PO SCH ×2 (09:55→21:44)
[2017-04-11 12:29] LABS: HEMATOCRIT 29.6 % (39.2-51.8); HEMOGLOBIN 10.1 g/dL (13.7-18.0); WHITE BLOOD COUNT 16.3 x10^3/uL (3.4-10)
[2017-04-11 12:38] LABS: BLOOD UREA NITROGEN 16 mg/dL (7-18)
[2017-04-11 12:44] LABS: ASPARTATE AMINO TRANSFERASE 65 U/L (15-37)
[2017-04-11 14:25] VITALS: BP 99/61
[2017-04-11] MEDS: CEFTRIAXONE PMX 2GM/50ML 50 ML IV SCH (16:28)
[2017-04-11 21:25] VITALS: BP 118/67
[2017-04-11] MEDS: ASPIRIN 81 MG TABLET EC PO SCH (21:43)
[2017-04-11] MEDS: VITAMIN E 400 UNITS CAPSULE PO SCH (21:43)
[2017-04-11] MEDS: CETIRIZINE 10 MG TABLET PO SCH (21:43)
[2017-04-11] MEDS: LISINOPRIL 5 MG TABLET PO SCH (21:44)
[2017-04-12 02:19] VITALS: BP 101/57
[2017-04-12] MEDS: ACETAMINOPHEN 325 MG TABLET PO PRN ×4 (05:55→21:22)
[2017-04-12] MEDS: OXYcodone IR 5MG TABLET PO SCH ×4 (05:56→21:23)
[2017-04-12 07:12] VITALS: BP 95/54
[2017-04-12] MEDS: DOXYCYCLINE 100MG TABLET PO SCH ×2 (09:03→21:23)
[2017-04-12] MEDS: OMEPRAZOLE 20 MG CAPSULE.DR PO SCH ×2 (09:04→21:23)
[2017-04-12] MEDS: POLYETHYLENE GLYCOL 17 GM PACKET PO SCH (09:04)
[2017-04-12] MEDS: GABAPENTIN 300 MG CAPSULE PO SCH ×3 (09:04→21:23)
[2017-04-12] MEDS: ENOXAPARIN 40 MG/0.4 ML SQ SCH (09:04)
[2017-04-12 13:33] VITALS: BP 92/54
[2017-04-12] MEDS: CEFTRIAXONE PMX 2GM/50ML 50 ML IV SCH (15:54)
[2017-04-12 19:37] VITALS: BP 94/59
[2017-04-12] MEDS: VITAMIN E 400 UNITS CAPSULE PO SCH (21:22)
[2017-04-12] MEDS: CETIRIZINE 10 MG TABLET PO SCH (21:22)
[2017-04-12] MEDS: LISINOPRIL 5 MG TABLET PO SCH (21:23)
[2017-04-12] MEDS: ASPIRIN 81 MG TABLET EC PO SCH (21:23)
[2017-04-13 02:00] VITALS: BP 97/59
[2017-04-13 05:01] LABS: HEMATOCRIT 31.9 % (39.2-51.8); HEMOGLOBIN 10.7 g/dL (13.7-18.0); WHITE BLOOD COUNT 13.3 x10^3/uL (3.4-10)
[2017-04-13] MEDS: ACETAMINOPHEN 325 MG TABLET PO PRN ×4 (06:00→20:58)
[2017-04-13] MEDS: OXYcodone IR 5MG TABLET PO SCH ×4 (06:00→20:58)
[2017-04-13 07:13] VITALS: BP 97/59
[2017-04-13] MEDS: ENOXAPARIN 40 MG/0.4 ML SQ SCH (10:16)
[2017-04-13] MEDS: POLYETHYLENE GLYCOL 17 GM PACKET PO SCH (10:16)
[2017-04-13] MEDS: DOXYCYCLINE 100MG TABLET PO SCH ×2 (10:16→20:57)
[2017-04-13] MEDS: GABAPENTIN 300 MG CAPSULE PO SCH ×3 (10:16→20:58)
[2017-04-13] MEDS: OMEPRAZOLE 20 MG CAPSULE.DR PO SCH ×2 (10:17→20:58)
[2017-04-13] MEDS ORDERED: ENALAPRILAT 1.25 MG/ML, 2ML IVPush PRN (15:30)
[2017-04-13] MEDS ORDERED: ONDANSETRON ODT 4 MG PO PRN (15:30)
[2017-04-13] MEDS ORDERED: DOCUSATE 100 MG CAPSULE PO PRN (15:30)
[2017-04-13] MEDS ORDERED: DIPHENHYDRAMINE 25 MG CAPSULE PO PRN (15:30)
[2017-04-13] MEDS: CEFTRIAXONE PMX 2GM/50ML 50 ML IV SCH (15:48)
[2017-04-13 16:18] VITALS: BP 98/63
[2017-04-13 19:56] VITALS: BP 104/66
[2017-04-13] MEDS: VITAMIN E 400 UNITS CAPSULE PO SCH (20:58)
[2017-04-13] MEDS: ASPIRIN 81 MG TABLET EC PO SCH (20:58)
[2017-04-13] MEDS: CETIRIZINE 10 MG TABLET PO SCH (21:52)
[2017-04-14 02:56] VITALS: BP 101/64
[2017-04-14] MEDS: OXYcodone IR 5MG TABLET PO SCH ×4 (05:14→21:33)
[2017-04-14 05:18] LABS: HEMATOCRIT 30.5 % (39.2-51.8); HEMOGLOBIN 10.3 g/dL (13.7-18.0)
[2017-04-14] MEDS: ACETAMINOPHEN 325 MG TABLET PO PRN (05:22)
[2017-04-14 06:00] LABS: ASPARTATE AMINO TRANSFERASE 56 U/L (15-37); BLOOD UREA NITROGEN 13 mg/dL (7-18)
[2017-04-14 08:00] VITALS: BP 114/72
[2017-04-14] MEDS: ENOXAPARIN 40 MG/0.4 ML SQ SCH (09:25)
[2017-04-14] MEDS: DOXYCYCLINE 100MG TABLET PO SCH ×2 (09:25→21:32)
[2017-04-14] MEDS: POLYETHYLENE GLYCOL 17 GM PACKET PO SCH (09:25)
[2017-04-14] MEDS: OMEPRAZOLE 20 MG CAPSULE.DR PO SCH ×2 (09:25→21:32)
[2017-04-14] MEDS: GABAPENTIN 300 MG CAPSULE PO SCH ×3 (09:25→21:33)
[2017-04-14] MEDS: CEFTRIAXONE PMX 2GM/50ML 50 ML IV SCH (12:07)
[2017-04-14 13:07] LABS: COMPLEMENT C3 128 mg/dL (82-167); COMPLEMENT C4 19 mg/dL (14-44); INTERMYOFIBRILLAR AB Negative (Neg:<1:20); MITOCHONDRIAL (M2) AB 7.1 Units (0.0-20.0); PARIETAL CELL AB 4.1 Units (0.0-20.0); RA LATEX TURBIDITY 10.4 IU/mL (0.0-13.9); SARCOLEMMA AB Negative (Neg:<1:20); STRIATION AB Negative (Neg:<1:40); THYROID PEROXIDASE (TPO) AB 17 IU/mL (0-34)
[2017-04-14 14:57] VITALS: BP 108/65
[2017-04-14 20:26] VITALS: BP 110/70
[2017-04-14] MEDS: VITAMIN E 400 UNITS CAPSULE PO SCH (21:32)
[2017-04-14] MEDS: CETIRIZINE 10 MG TABLET PO SCH (21:33)
[2017-04-14] MEDS: ASPIRIN 81 MG TABLET EC PO SCH (21:33)
[2017-04-15 01:35] VITALS: BP 116/74
[2017-04-15] MEDS: OXYcodone IR 5MG TABLET PO SCH ×2 (05:53→11:13)
[2017-04-15 07:34] VITALS: BP 112/68
[2017-04-15] MEDS: GABAPENTIN 300 MG CAPSULE PO SCH (09:11)
[2017-04-15] MEDS: POLYETHYLENE GLYCOL 17 GM PACKET PO SCH (09:11)
[2017-04-15] MEDS: ENOXAPARIN 40 MG/0.4 ML SQ SCH (09:11)
[2017-04-15] MEDS: OMEPRAZOLE 20 MG CAPSULE.DR PO SCH (09:11)
[2017-04-15] MEDS: DOXYCYCLINE 100MG TABLET PO SCH (09:11)
[2017-04-15] MEDS: CEFTRIAXONE PMX 2GM/50ML 50 ML IV SCH (12:07)
[2017-04-15 12:54] VITALS: BP 134/80
[2017-04-15] MEDS ORDERED: OXYC5TAB3 PO (13:55)
[2017-04-15] MEDS ORDERED: OMEP-110 PO (13:55)
[2017-04-15] MEDS ORDERED: DOCU-131 PO (13:55)
[2017-04-15] MEDS ORDERED: SENN1TAB7 PO (13:55)
[2017-04-15] MEDS ORDERED: DOXY100T PO (13:55)
[2017-04-15] MEDS ORDERED: CEFT2PIG2 IV (13:55)
[2017-04-15] MEDS ORDERED: GABA300C10 PO (13:55)
== END 2017-04-15 16:09 | disposition home or self-care (01) | DRG 288 ==
LOC: ED 17:58 → 3NE 20:50 → DCLOUNGE 04-15 15:35
PROVIDERS: ADMIT Internal Medicine; ATTEND Hospitalist
PROC: 07DR3ZX Extraction of Iliac Bone Marrow, Percutaneous Approach, Diagnostic (ICD-10-PCS; 2017-04-07)
PROC: 02HV33Z Insertion of Infusion Device into Superior Vena Cava, Percutaneous Approach (ICD-10-PCS; principal; 2017-04-14)
PROC: B5181ZA Fluoroscopy of Superior Vena Cava using Low Osmolar Contrast, Guidance (ICD-10-PCS; 2017-04-14)
DX: I33.9 Acute and subacute endocarditis, unspecified (principal); E43 Unspecified severe protein-calorie malnutrition; D72.1 Eosinophilia; K75.9 Inflammatory liver disease, unspecified; K76.0 Fatty (change of) liver, not elsewhere classified; D63.8 Anemia in other chronic diseases classified elsewhere; E87.1 Hypo-osmolality and hyponatremia; E86.0 Dehydration; N28.1 Cyst of kidney, acquired; B15.9 Hepatitis A without hepatic coma; R50.9 Fever, unspecified; Z68.24 Body mass index [BMI] 24.0-24.9, adult; Z88.6 Allergy status to analgesic agent; B34.9 Viral infection, unspecified; D75.89 Other specified diseases of blood and blood-forming organs; E78.00 Pure hypercholesterolemia, unspecified; E78.5 Hyperlipidemia, unspecified; I10 Essential (primary) hypertension; I35.0 Nonrheumatic aortic (valve) stenosis; I35.1 Nonrheumatic aortic (valve) insufficiency; I70.0 Atherosclerosis of aorta; K21.9 Gastro-esophageal reflux disease without esophagitis; M50.30 Other cervical disc degeneration, unspecified cervical region; M51.36 Other intervertebral disc degeneration, lumbar region; N28.89 Other specified disorders of kidney and ureter; M43.6 Torticollis; Z80.8 Family history of malignant neoplasm of other organs or systems; K80.20 Calculus of gallbladder without cholecystitis without obstruction; M35.9 Systemic involvement of connective tissue, unspecified
CPT/HCPCS: 36415; 36569; 70450; 70553; 71010; 72156; 72157; 72158; 74178; 76700; 76770; 76937; 77001; 77012; 80048; 80053; 81001; 81206; 81207; 82533; 82550; 82565; 82977; 83516; 83605; 83615; 83735; 84100; 84145; 84155; 84156; 84165; 84166; 85025; 85097; 85610; 85651; 85730; 86038; 86140; 86160; 86225; 86235; 86255; 86256; 86361; 86376; 86431; 86480; 86611; 86622; 86635; 86638; 86663; 86664; 86665; 86703; 86704; 86706; 86708; 86709; 86784; 86803; 87040; 87070; 87086; 87205; 87340; 87400; 87496; 87798; 87899; 88184; 88185; 88237; 88264; 88280; 88305; 88311; 88313; 93005; 93306; 93970; 96360; 96361; 99156; 99157; A9585; G0364; J0696; J1650; J2250; J3010; J3490; Q9967; C1751; G0435; J2270; J2310; J7030; J7040